=== PATIENT | female | born 1965 | race Caucasian/White ===

== ENCOUNTER 2017-03-06 12:47 | Emergency (ER) | payer OTHER ==
[~2017-03-06] VITALS: Ht 160 cm; Wt 60.0 kg
[~2017-03-06 12:47] MED LIST: ABILIFY10 MG OR; ABILIFY15 MG OR; ABILIFY30 MG PO; ALBUTEROL SUL0.083 % IN; AMBIEN5 MG PO; AZITHROMYCIN250 MG PO; BACTRIM DS1 TAB OR; BACTRIM DS1 TAB PO; CELEXA20 MG OR; CEPHALEXIN500 MG OR; CIPRO500 MG OR; CIPROFLOXACN500 MG PO; COMPAZINE10 MG OR; DARVOCET-N100 MG OR; DILAUDID 2MG2 MG/TAB PO; DILAUDID2 MG PO; EC ASPIRIN325 M1 OR; FLEXERIL OR; IBUPROFEN600 MG PO; INCIVEK; INCIVEK PO; INTRON A SC; KEFLEX500 M1 PO; KEFLEX500 MG PO; KEPPRA500 M2 PO; KLONOPIN0.5 MG OR; KLONOPIN1 MG OR; KLONOPIN1 MG PO; LEXAPRO20 MG PO; LOMOTIL2.5 MG OR; LORTAB 10 PO; LORTAB 5 OR; LORTAB 5 PO; LORTAB 5/3255 MG PO; LORTAB 7.5 OR; LORTAB5 OR; LORTAB5 PO; MACRODANTIN100 MG PO; MEDDOSEPAK PO; METHADONE HCL5 MG PO; MIRTAZAPINE15 MG PO; NAPROSYN500 MG PO; NO HOME MEDS; OXYCODONE HCL5 MG PO; OXYCODONE30 MG OR; OXYCODONE5 M1 OR; OXYCODONE5 M1 PO; OXYCODONE5 MG OR; PEGASYS180 MCG/M SC; PEPCID20 MG PO; PEPCID40 MG PO; PERCOCET 5/325M1 TAB OR; PHENERGAN25 MG RE; PREP H HC1 % EX; PREVACID30 M2 PO; PYRIDIUM200 MG PO; REBETOL200 MG PO; REGLAN10 MG OR; RIBAVIRIN PO; RIBAVIRIN200 M1 OR; ROXICODONE30 MG OR; SEROQUEL100 MG OR; SEROQUEL100 MG PO; SYNTHROID PO; SYNTHROID100 MCG OR; SYNTHROID125 MCG PO; SYNTHROID150 MCG OR; SYNTHROID200 MCG PO; SYNTHROID50 MCG OR; SYNTHROID75 MCG OR; TRAMADOL HCL50 MG PO; TRAZODONE100 MG OR; TRAZODONE150 MG OR; TRAZODONE300 MG OR; TRILEPTAL150 M1 OR; TRILEPTAL150 M1 PO; TRILEPTAL150 MG PO; TRILEPTAL300 M1 PO; ULTRAM50 M1 PO; ULTRAM50 MG OR; WELLBUTRIN150 MG OR; ZANTAC150 MG OR; ZITHROMAX250 MG PO; ZITHROMAX500 M1 PO; ZOFRAN ODT4 MG OR; ZOFRAN ODT4 MG PO; ZOFRAN4 M1 PO; ZOLOFT25 MG PO; ZOLOFT50 MG OR; ZOLOFT50 MG PO; ZPAK PO; [UNRECOGNIZED DRUG - OTHER] PO; [UNRECOGNIZED DRUG - REMARK]
[2017-03-06] MEDS ORDERED: BACTRIM DS1 TAB PO (13:15)
[2017-03-06 14:05] VITALS: BP 101/69
== END 2017-03-06 14:05 | disposition home or self-care (01) | DRG 603 ==
LOC: ED 12:47
PROC: 0H9JXZZ Drainage of Left Upper Leg Skin, External Approach (ICD-10-PCS; principal; 2017-03-06)
DX: L02.416 Cutaneous abscess of left lower limb (principal); F20.9 Schizophrenia, unspecified; J44.9 Chronic obstructive pulmonary disease, unspecified; B19.20 Unspecified viral hepatitis C without hepatic coma; E03.9 Hypothyroidism, unspecified; Z86.73 Personal history of transient ischemic attack (TIA), and cerebral infarction without residual deficits; K21.9 Gastro-esophageal reflux disease without esophagitis; F31.9 Bipolar disorder, unspecified; F17.210 Nicotine dependence, cigarettes, uncomplicated

== ENCOUNTER 2017-03-09 06:04 | Emergency (ER) | payer OTHER ==
[~2017-03-09] VITALS: Ht 160 cm; Wt 59.0 kg
[2017-03-09 07:04] LABS: HEMATOCRIT 47.2 % (37.0-47.0); IMMATURE GRANULOCYTES 0.3 % (0.0-1.0); MEAN CELL VOLUME 91.1 fL CALC (80.0-100.0); MEAN CORPUSCULAR HGB 30.9 pG CALC (26.0-32.0); MEAN CORPUSCULAR HGB CONC 33.9 g/L CALC (32.0-36.0); NEUT# 11.2 thou/uL (2.00-7.15); RED BLOOD COUNT 5.18 mill/uL (4.20-5.60); RED CELL DISTRI WIDTH 13.8 % (11.5-15.5)
[2017-03-09 07:05] LABS: URINE BILIRUBIN - DIPSTICK NEGATIVE (NEGATIVE); URINE BLOOD DIPSTICK SMALL (NEGATIVE); URINE CLARITY CLOUDY; URINE COLOR YELLOW; URINE GLUCOSE - DIPSTICK NEGATIVE (NEGATIVE); URINE KETONE NEGATIVE (NEGATIVE); URINE LEUK ESTERASE NEGATIVE (NEGATIVE); URINE NITRITE - DIPSTICK NEGATIVE (Negative); URINE PH 6.5 (4.5-8.0); URINE PROTEIN - DIPSTICK NEGATIVE (NEG-TRACE); URINE SPECIFIC GRAVITY 1.025; URINE UROBILINOGEN - DIPSTICK 0.2 E.U./dL (0.2)
[2017-03-09 07:14] LABS: BARBITURATES NEGATIVE (NEGATIVE); COCAINE NEGATIVE (NEGATIVE); METHADONE POSITIVE (NEGATIVE); OXCYCODONE NEGATIVE (NEGATIVE); TETRAHYDROCANNABIONOL NEGATIVE (NEGATIVE); TRICYLIC ANTIDEPRESSANTS NEGATIVE (NEGATIVE)
[2017-03-09 07:15] LABS: INTERNATIONAL NORMALIZED RATIO 1.1 RATIO (0.7-1.3); PROTHROMBIN TIME 11.6 SECONDS (9.0-12.5)
[2017-03-09 07:16] LABS: URINE BACTERIA FEW hpf; URINE MUCUS MANY hpf (NONE-FEW); URINE RBC 0-2 RBC/hpf (0-5); URINE SQUAMOUS EPITHELIAL CELL MODERATE EPI/hpf (0-FEW)
[2017-03-09 07:40] LABS: ALBUMIN 4.4 g/dL (3.2-5.0); ALKALINE PHOSPHATASE 62 u/l (38-126); ANION GAP 14 (6-22 (CALC)); BILIRUBIN, TOTAL 0.6 mg/dL (0.0-1.4); BUN 19 mg/dL (7-17); BUN/CREATININE RATIO 27 (12-20 (CALC)); CALCIUM 9.3 mg/dL (8.4-10.2); CARBON DIOXIDE 27 mmol/l (22-30); CHLORIDE 110 mmol/l (95-108); CREATININE 0.7 mg/dL (0.5-1.0); GFR > 60 ML/MIN (>=60 (CALC)); GFR FOR AFR.AMER. > 60 ML/MIN (>=60 (CALC)); GLUCOSE 98 mg/dL (65-105); POTASSIUM 3.4 mmol/l (3.5-5.1); SGOT/AST 18 u/l (14-36); SGPT/ALT 23 u/l (9-52); SODIUM 147 mmol/l (137-146); TOTAL PROTEIN 7.2 g/dL (6.3-8.2)
[2017-03-09 07:52] LABS: MYOGLOBIN 37 ng/mL (0 - 62)
[2017-03-09 08:24] LABS: TSH, 3RD GENERATION 42.8 uIU/mL (0.47 - 4.68)
[2017-03-09] MEDS ORDERED: SYNTHROID50 MCG PO (11:36)
[2017-03-09 11:54] VITALS: BP 174/86
== END 2017-03-09 11:56 | disposition home or self-care (01) | DRG 313 ==
LOC: ED 06:04
PROVIDERS: Emergency Medicine
DX: R07.89 Other chest pain (principal); F20.9 Schizophrenia, unspecified; J44.9 Chronic obstructive pulmonary disease, unspecified; B19.20 Unspecified viral hepatitis C without hepatic coma; E03.9 Hypothyroidism, unspecified; K21.9 Gastro-esophageal reflux disease without esophagitis; F31.9 Bipolar disorder, unspecified; F17.210 Nicotine dependence, cigarettes, uncomplicated; Z79.891 Long term (current) use of opiate analgesic

== ENCOUNTER 2017-03-17 23:23 | Emergency (ER) | payer OTHER ==
[~2017-03-17] VITALS: Ht 160 cm; Wt 59.0 kg
[~2017-03-17 23:23] MED LIST changes: +SYNTHROID50 MCG PO
[2017-03-17] MEDS ORDERED: CLONAZEPAM0.5 M1 PO (23:34)
[2017-03-18] MEDS ORDERED: IBUPROFEN600 MG PO (01:30)
[2017-03-18 01:35] VITALS: BP 100/57
== END 2017-03-18 01:35 | disposition home or self-care (01) | DRG 605 ==
LOC: ED 23:23
DX: S90.31XA Contusion of right foot, initial encounter (principal); F20.9 Schizophrenia, unspecified; J44.9 Chronic obstructive pulmonary disease, unspecified; B19.20 Unspecified viral hepatitis C without hepatic coma; E03.9 Hypothyroidism, unspecified; K21.9 Gastro-esophageal reflux disease without esophagitis; F31.9 Bipolar disorder, unspecified; F17.210 Nicotine dependence, cigarettes, uncomplicated; W20.8XXA Other cause of strike by thrown, projected or falling object, initial encounter; Y92.009 Unspecified place in unspecified non-institutional (private) residence as the place of occurrence of the external cause; Z86.73 Personal history of transient ischemic attack (TIA), and cerebral infarction without residual deficits

== ENCOUNTER 2017-04-29 13:28 | Emergency (ER) | payer OTHER ==
[~2017-04-29] VITALS: Ht 160 cm; Wt 60.0 kg
[~2017-04-29 13:28] MED LIST changes: +CLONAZEPAM0.5 M1 PO
[2017-04-29 15:12] LABS: HEMATOCRIT 41.5 % (37.0-47.0); HEMOGLOBIN 14.1 g/dl (12.0-16.0); IMMATURE GRANULOCYTES 0.4 % (0.0-1.0); MEAN CELL VOLUME 91.2 fL CALC (80.0-100.0); NEUT# 9.64 thou/uL (2.00-7.15); RED BLOOD COUNT 4.55 mill/uL (4.20-5.60); RED CELL DISTRI WIDTH 13.9 % (11.5-15.5)
[2017-04-29 15:26] LABS: ALBUMIN 4.7 g/dL (3.2-5.0); ALKALINE PHOSPHATASE 63 u/l (38-126); ANION GAP 15 (6-22 (CALC)); BILIRUBIN, TOTAL 0.8 mg/dL (0.0-1.4); BUN 20 mg/dL (7-17); BUN/CREATININE RATIO 24 (12-20 (CALC)); CALCIUM 9.3 mg/dL (8.4-10.2); CARBON DIOXIDE 25 mmol/l (22-30); CHLORIDE 105 mmol/l (95-108); CREATININE 0.8 mg/dL (0.5-1.0); GFR > 60 ML/MIN (>=60 (CALC)); GFR FOR AFR.AMER. > 60 ML/MIN (>=60 (CALC)); GLUCOSE 92 mg/dL (65-105); POTASSIUM 4.1 mmol/l (3.5-5.1); SGOT/AST 18 u/l (14-36); SGPT/ALT 12 u/l (9-52); SODIUM 141 mmol/l (137-146); TOTAL PROTEIN 7.7 g/dL (6.3-8.2)
[2017-04-29] MEDS ORDERED: BACTRIM DS1 TAB PO (17:37)
[2017-04-29] MEDS ORDERED: CEPHALEXIN500 MG PO (17:37)
[2017-04-29] MEDS ORDERED: LORTAB 1010 MG PO (17:40)
[2017-04-29 17:56] VITALS: BP 111/64
== END 2017-04-29 18:03 | disposition left against medical advice (07) | DRG 603 ==
LOC: ED 13:28 → ED-I 16:50 → ED 18:03
PROVIDERS: Emergency Medicine
PROC: 0H9EXZX Drainage of Left Lower Arm Skin, External Approach, Diagnostic (ICD-10-PCS; principal; 2017-04-29)
DX: L02.414 Cutaneous abscess of left upper limb (principal); F20.9 Schizophrenia, unspecified; L03.114 Cellulitis of left upper limb; B19.20 Unspecified viral hepatitis C without hepatic coma; E03.9 Hypothyroidism, unspecified; K21.9 Gastro-esophageal reflux disease without esophagitis; F31.9 Bipolar disorder, unspecified; F41.0 Panic disorder [episodic paroxysmal anxiety]; F17.210 Nicotine dependence, cigarettes, uncomplicated; Z86.73 Personal history of transient ischemic attack (TIA), and cerebral infarction without residual deficits; B95.61 Methicillin susceptible Staphylococcus aureus infection as the cause of diseases classified elsewhere

== ENCOUNTER 2017-06-04 00:32 | Emergency (ER) | payer OTHER ==
[~2017-06-04] VITALS: Ht 160 cm; Wt 53.2 kg
[~2017-06-04 00:32] MED LIST changes: +CEPHALEXIN500 MG PO; +LORTAB 1010 MG PO
[2017-06-04] MEDS ORDERED: TRILEPTAL150 M1 PO (00:54)
[2017-06-04] MEDS ORDERED: KLONOPIN1 MG PO (00:54)
[2017-06-04] MEDS ORDERED: CEPHALEXIN500 MG PO (01:07)
[2017-06-04 01:27] VITALS: BP 132/71
== END 2017-06-04 01:25 | disposition home or self-care (01) | DRG 605 ==
LOC: ED 00:32
PROC: 0HQEXZZ Repair Left Lower Arm Skin, External Approach (ICD-10-PCS; principal; 2017-06-04)
DX: S51.812A Laceration without foreign body of left forearm, initial encounter (principal); W26.8XXA Contact with other sharp object(s), not elsewhere classified, initial encounter; Y93.89 Activity, other specified; Y92.89 Other specified places as the place of occurrence of the external cause

== ENCOUNTER 2018-02-17 15:12 | Inpatient (IN) | payer OTHER ==
[~2018-02-17] VITALS: Ht 160 cm; Wt 47.3 kg
--- NOTE | 2018-02-17 15:18 | NUR ---
PT TO ROOM VIA EMS
--- NOTE | 2018-02-17 15:23 | NUR ---
PT STATES THAT SHE WAS LIFTING A BAG OF DOG FOOD AND HIT HER BACK ON A CABINENT A FEW DAYS AGO. PT STATES ABOMINAL PAIN WITH N/V/D FORLAST 2 DAYS. PT HAS BEE
[2018-02-17 15:45] LABS: HEMATOCRIT 37.1 % (37.0-47.0); IMMATURE GRANULOCYTES 0.5 % (0.0-5.0); MEAN CELL VOLUME 90.5 fL CALC (80.0-100.0); MEAN CORPUSCULAR HGB 29.5 pG CALC (26.0-32.0); MEAN CORPUSCULAR HGB CONC 32.6 g/L CALC (32.0-36.0); NEUT# 3.6 thou/uL (2.00-7.15); RED BLOOD COUNT 4.1 mill/uL (4.20-5.60)
[2018-02-17 15:48] LABS: INFLUENZA A NONE DETECTED (NONE DETECT); INFLUENZA B NONE DETECTED (NONE DETECT)
[2018-02-17 15:54] LABS: BILIRUBIN, TOTAL 0.9 mg/dL (0.0-1.4); BUN 29 mg/dL (7-17); BUN/CREATININE RATIO 28 (12-20 (CALC)); CARBON DIOXIDE 24 mmol/l (22-30); CHLORIDE 110 mmol/l (95-108); CREATININE 1.1 mg/dL (0.5-1.0); GFR 52 ML/MIN (>=60 (CALC)); GFR FOR AFR.AMER. > 60 ML/MIN (>=60 (CALC)); LIPASE 44 u/l (23-300); SODIUM 143 mmol/l (137-146); TOTAL PROTEIN 6.7 g/dL (6.3-8.2)
[2018-02-17 15:57] LABS: ALBUMIN 3.6 g/dL (3.2-5.0); ALKALINE PHOSPHATASE 148 u/l (38-126); ANION GAP 12 (6-22 (CALC)); POTASSIUM 3.2 mmol/l (3.5-5.1); SGOT/AST 588 u/l (14-36)
[2018-02-17 16:00] LABS: HEMOGLOBIN 12.1 g/dl (12.0-16.0)
--- NOTE | 2018-02-17 16:23 | NUR ---
PT ASLEEP ON STRETHCER
--- NOTE | 2018-02-17 17:13 | NUR ---
PT RESTING ON STRETHCER, IV PATENT WITH FLUIDS RUNNING
[2018-02-17 17:23] LABS: URINE BILIRUBIN - DIPSTICK NEGATIVE (NEGATIVE); URINE BLOOD DIPSTICK TRACE-INTACT (NEGATIVE); URINE COLOR YELLOW; URINE GLUCOSE - DIPSTICK NEGATIVE (NEGATIVE); URINE KETONE NEGATIVE (NEGATIVE); URINE NITRITE - DIPSTICK NEGATIVE (Negative); URINE PROTEIN - DIPSTICK NEGATIVE (NEG-TRACE); URINE UROBILINOGEN - DIPSTICK 0.2 E.U./dL (0.2)
[2018-02-17 17:24] LABS: URINE CLARITY CLEAR; URINE LEUK ESTERASE SMALL (NEGATIVE)
[2018-02-17 17:32] LABS: URINE SQUAMOUS EPITHELIAL CELL FEW EPI/hpf (0-FEW)
--- NOTE | 2018-02-17 18:13 | NUR ---
PT ASLEEP ON STRETHCER, IV PATENT WITH FLUIDS RUNNING
--- NOTE | 2018-02-17 18:43 | NUR ---
SBAR SENT TO FLOOR
--- NOTE | 2018-02-17 19:36 | NUR ---
LENORE DENNEY CALLED FOR REPORT- ACCEPTED PT
--- NOTE | 2018-02-17 20:10 | NUR ---
PT TO FLOOR VIA STRETCHER ACCOMPANIED BY ER STAFF. PT AMBULATED TO BED WITH MINIMAL ASSISTANCE. PT IS ALERT AND ORIENTED X3. ADMISSION ASSESSMENT COMPLETED AT THIS TIME. PT ORIENTED TO ROOM AND UNIT AND CALL LIGHT SYSTEM. PLAN OF CARE REVIEWED. PT VERBALIZED U NDERSTANDING. CALL LIGHT IN REACH. WILL CONTINUE TO MONITOR. CALL LIGHT IN REACH. WILL CONTINUE TO MONITOR.
[2018-02-17 20:15] VITALS: BP 98/62
--- NOTE | 2018-02-17 20:16 | NUR ---
Admission Note Report Given to: FATOU DENNEY Transported by: Wheelchair X Stretcher Transported with: X Nurse Transporter X Patent IV O2 X Skills Auditor TRANSPORTED TO ICU 4
[2018-02-17 20:30] VITALS: BP 96/51
[2018-02-17 20:45] VITALS: BP 93/53
[2018-02-17 20:57] LABS: COCAINE POSITIVE (NEGATIVE); METHADONE NEGATIVE (NEGATIVE); TETRAHYDROCANNABIONOL POSITIVE (NEGATIVE)
--- NOTE | 2018-02-17 20:57 | NUR ---
TEMP 102.6 ICE PACKS PLACED ON PATIENT X4. PT REPORTS THAT TYLENOL AND TORADOL MAKE HER THROAT SWELL AND SHUT. WILL CONTINUE TO MONTIOR
[2018-02-17 20:58] LABS: BARBITURATES NEGATIVE (NEGATIVE); OXCYCODONE NEGATIVE (NEGATIVE); TRICYLIC ANTIDEPRESSANTS NEGATIVE (NEGATIVE)
[2018-02-17 21:00] VITALS: BP 109/60
--- NOTE | 2018-02-17 21:45 | NUR ---
NOTIFIED DR MIR OF PT BP. ORDERS RECEIVED FOR PLACEMENT OF PATRICK. PATRICK PLACED. PT TOLERATED WELL. NS BOLUS STARTED PER MD ORDERS. CALL LIGHT IN REACH. WILL CONTINUE TO MONITOR.
[2018-02-17 22:00] VITALS: BP 89/51
--- NOTE | 2018-02-17 22:15 | NUR ---
TEMP RECHECK 100.7. ICE PACKS REMOVED WILL CONTINUE OT MONITOR
--- NOTE | 2018-02-17 23:51 | NUR ---
TEMP 99.4. PT RESTING IN BED WITH EYES CLOSED. CALL LIGHT IN REACH. WILL CONTINUE TO MONITOR.
[2018-02-18] VITALS (9 sets, daily range): BP systolic 92–120; BP diastolic 51–79
--- NOTE | 2018-02-18 00:40 | NUR ---
PT RESTING IN BED WITH EYES CLOSED SNORING RESPIRATIONS NOTED. AROUSED PT TAKE MANUAL BP DUE TO AUTOMATIC READING 79/34. MANUAL BP 94/50. REPLACED AUTO CUFF WITH A SMALL CUFF. AUTO BP NOW READING 99/53. PT STATING SHE IS HAVING BACK PAIN. EXPLAINED THAT I HAVE ALREADY SPOKE WITH MD AND NO NARCOTICS WILL BE ORDERED. AND SHE IS ALLERGIC TO TYLENOL AND TORADOL. PT DISGRUNTLED BUT VERBALIZED UNDERSTANDING. CALL LIGHT IN REACH. WILL CONTINUE TO MONITOR.
--- NOTE | 2018-02-18 02:16 | NUR ---
PT RESTING IN BED WITH EYES CLOSED. RESP ARE EVEN AND UNLABORED. NO DISTRESS NOTED. CALL LIGHT IN REACH. WILL CONTINUE TO MONITOR.
--- NOTE | 2018-02-18 03:58 | NUR ---
pt resting in bed with eyes closed. pt aROUSES TO VERBAL STIMULI RESP ARE EVEN AND UNLABORED. PT IS SB TO SR ON MONITOR. CALL LIGHT IN REACH. WILL CONTINUE TO MONITOR.
[2018-02-18 05:11] LABS: HEMATOCRIT 34.9 % (37.0-47.0); HEMOGLOBIN 11.2 g/dl (12.0-16.0); IMMATURE GRANULOCYTES 1.5 % (0.0-5.0); MEAN CELL VOLUME 91.6 fL CALC (80.0-100.0); MEAN CORPUSCULAR HGB 29.4 pG CALC (26.0-32.0); MEAN CORPUSCULAR HGB CONC 32.1 g/L CALC (32.0-36.0); PLATELET COUNT 98 thou/uL (130-400); RED BLOOD COUNT 3.81 mill/uL (4.20-5.60); RED CELL DISTRI WIDTH 15.2 % (11.5-15.5)
[2018-02-18 05:27] LABS: ALKALINE PHOSPHATASE 92 u/l (38-126); ANION GAP 13 (6-22 (CALC)); BILIRUBIN, TOTAL 0.8 mg/dL (0.0-1.4); BUN 18 mg/dL (7-17); BUN/CREATININE RATIO 23 (12-20 (CALC)); CARBON DIOXIDE 21 mmol/l (22-30); CHLORIDE 116 mmol/l (95-108); CREATININE 0.8 mg/dL (0.5-1.0); GFR > 60 ML/MIN (>=60 (CALC)); GFR FOR AFR.AMER. > 60 ML/MIN (>=60 (CALC)); POTASSIUM 3.8 mmol/l (3.5-5.1); SGOT/AST 226 u/l (14-36); SODIUM 146 mmol/l (137-146)
[2018-02-18 05:35] LABS: ALBUMIN 2.7 g/dL (3.2-5.0); TOTAL PROTEIN 5.2 g/dL (6.3-8.2)
[2018-02-18 05:41] LABS: BAND 6 % (0-8); MANUAL DIFFERENTIAL YES
--- NOTE | 2018-02-18 06:13 | NUR ---
PT RESTING IN BED WITH EYES CLOSED AROUSES TO VERBAL STIMULI. RESP ARE EVEN AND UNLABORED. TEMP 98.1. PT WITH COMPLAINTS OF BACK PAIN. CALL LIGHT IN REACH, WILL CONTINUE TO MONITOR
--- NOTE | 2018-02-18 06:52 | NUR ---
RECVD PARTIAL REPORT FROM JUMANA LAINEZ AT START OF SHIFT.
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
--- NOTE | 2018-02-18 08:19 | NUR ---
PT SAT UP ON SIDE OF BED, MADE HER COFFEE, THEN ROLLED OVER TO GO BACK TO SLEEP. WHEN ASKED IF SHE IS DONE WITH BREAKFAST, PT SAID "NOPE".
--- NOTE | 2018-02-18 09:29 | NUR ---
pt given morning meds. pt laying quietly in bed but very nasty to staff when we enter. pt laughing on personal cell phone.
--- NOTE | 2018-02-18 09:47 | NUR ---
PT FREQUENTLY ON CALLBELL.
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
--- NOTE | 2018-02-18 10:22 | NUR ---
DR OLVERA REMOVED PT FROM CONTACT PRECAUTIONS SINCE MENINGITIS IS NEGATIVE. REQUEST IVF STOPPED.
--- NOTE | 2018-02-18 10:44 | NUR ---
S: DARIANA NINA is a 52 F who presents with spesis. She has a history of Hep C, COPD, and cancer. All medications in patient's chart were reviewed. VS: BP 98/59, P 52, RR 25 ,T 96.4 W 47.287 kg, HT 24.8 cm, Scr= 0.8,CrCl= 60.0 ml/min A: Blood culture is pending. Urine culture show no growth after 48 hours. P: Patient is on zosyn 3.375 gm IV Q6h. Vancomycin ordered for pharmacy to dose. Start Vancomycin 1 gm IV Q24H. Vancomycin trough is drawn before the 4th dose on 02/20/18 at 0630. Vancomycin goal trough is between 15-20 mcg/ml. Pharmacy will follow and or advise on antibiotics use as needed.
--- NOTE | 2018-02-18 10:45 | NUR ---
CATH PATRICK REMOVED W/OUT INCIDENT. 10CC REMOVED FROM BALLOON. LINENS CHANGED PER PTS REQUEST. PT UP TO BSC UNASSISTED. PT REMINDED TO CALL BEFORE SHE GETS OUT OF BED.
--- NOTE | 2018-02-18 10:52 | NUR ---
HANY, CASE MANAGEMENT, AT BEDSIDE [facility] PT.
--- NOTE | 2018-02-18 11:47 | NUR ---
PT STATES SHE IS "BURNING UP", REFUSES TO REMOVE THE COVERS. TEMP 97.0
--- NOTE | 2018-02-18 12:08 | NUR ---
PT CONTINUALLY RIPS OFF HER BP CUFF & PULSE OX.
--- NOTE | 2018-02-18 12:20 | NUR ---
FRIEND @BEDSIDE WITH PT. BROUGHT A PHONE FOOD TECHNOLOGIST.
--- NOTE | 2018-02-18 12:58 | NUR ---
CALLED TO ROOM AFTER PT "WAS INCONTENENT OF HER BOWELS". PT CLEANED UP & LINENS CHANGED. PT THEN SAT ON BSC FOR DIARRHEA. PT TALKING TO HERSELF ABOUT "THIS ISNT WITHDRAWL BC THERES NOTHING TO WITHDRAWL OFF OF" PT ASSISTED BACK TO BED AND TUCKED IN FOR A NAP. FRIEND LEFT.
--- NOTE | 2018-02-18 13:18 | NUR ---
PT APPEARS TO BE SLEEPING IN BED. NO S/S OF DISTRESS AT THIS TIME. WILL CONTINUE TO MONITOR.
--- NOTE | 2018-02-18 13:46 | NUR ---
DIETARY @BEDSIDE WITH PT.
--- NOTE | 2018-02-18 14:44 | NUR ---
PT UP OUT OF BED, CLOSING CURTAINS, AND RIPPING OFF MONITOR. PT REMINDED THAT SHE NEEDS TO USE CALLBELL BEFORE GETTING OUT OF BED. PT OVERHEARD YELLING AT STAFF FROM ROOM. CALLBELL W/IN REACH, BED IN LOWEST POSITION, WHEELS LOCKED, PATHWAYS CLEAR, LIGHTS ON. PT CONTINUE TO BE UNCOOPERATIVE.
--- NOTE | 2018-02-18 14:55 | NUR ---
CASE MANAGEMENT & DEPT PALS NURSE AWARE.
--- NOTE | 2018-02-18 15:09 | NUR ---
DR OLVERA AWARE OF PTS BEHAVIOR.
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
--- NOTE | 2018-02-18 15:45 | NUR ---
RECEIVED PHONE CALL FROM PTS FRIEND FRANCESCO CARDOZA REPORTING SEVERAL COMPLAINTS. IN TO SEE PT, PT FOUND AMBULATING IN ROOM, AGGITATED AND TEARFUL MOVING FURNITURE ABOUT IN ROOM. PT REPORTS LOOKING FOR HER EMERGENCY DOSE OF KLONOPIN SHE HAD HIDDEN IN THE BACK OF HER PHONE CASE. INFORMED PT SHE HAD ALREADY RECEIVED 2MG OF KLONOPIN, PT REPORTS SHE ONLY TAKES 1/2 MG AT HOME. PT ALSO REPORTS LAYING IN SOILED SHEETS, SHEETS AT THIS TIME FOUND TO BE CLEAN. PT AGGITAED WITH NOT BEING ABLE TO GET WASHED UP, OFFERED TO ASSIST PT AT THIS TIME, PT REFUSED STATING SHE WILL WAIT LATER UNTIL HER FRIEND COMES IN. PT ALSO REPORTS HEADACHE. PT WILL NOT MAINTAIN ANY EYE CONTACT AND CONTINUES TO SEARCH ROOM FOR HER MISSING PILL. NOTIFIED DR OLVERA OF PTS AGGITATION AND HEADACHE. WILL BE IN TO SEE HER.
--- NOTE | 2018-02-18 15:51 | NUR ---
PT ON FLOOR, LOOKING FOR HER "EMERGENCY KLONIPIN" UNDER BED. PT CLOSING CURTAINS, CRAWLING ON FLOOR.
--- NOTE | 2018-02-18 15:55 | NUR ---
PT REMOVED BRAKE ON BED, CAN HEAR THE ALARM BUT CAN NOT SEE WITH CURTAINS CLOSED.
--- NOTE | 2018-02-18 16:30 | NUR ---
PT REQUESTING A BROOM. PT LOOKING IN GARBAGE CANS & MOVING AROUND THE FURNITURE & LOOKING THROUGH DRAWERS/CABINETS. PT IS TALKING TO HERSELF, ACTING JITTERY, CALLING THIS "A NISHA MOUSE ESTABLISHMENT" DR OLVERA ON THE UNIT.
--- NOTE | 2018-02-18 16:35 | NUR ---
PT CRYING ON THE PHONE, YELLING ABOUT STAFF.
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
--- NOTE | 2018-02-18 17:12 | NUR ---
PT TALKING ON PHONE TELLING PEOPLE TO BRING "HER STUFF" HER IN HER PURSE AND SHE WILL PAY THEM BACK TOMORROW. ALSO, THAT WE CAN'T SEARCH HER PURSE SO THATS A GOOD IDEA.
--- NOTE | 2018-02-18 17:18 | NUR ---
DIELECTRIC EMBOSSING MACHINE OPERATOR CALLED FOR PTS INCREASING AGITATION AND FOR ASSISTANCE WITH OVERHEARING PTS CONVERSATION.
--- NOTE | 2018-02-18 17:45 | NUR ---
DILAUDID VERIFIED WITH DR OLVERA, ACKNOWLEDGING HYPOTENSION. HE STATED SHE HAS CHRONIC LIVER DX SO HER BP WILL BE LOW. PT ADVISED SHE NEEDED TO STAY ON BP/PULSE OX/TELE MONITOR AND STAY IN BED AFTER GETTING DILAUDID. DILAUDID GIVEN A SLOW PUSH OVER 5 MINS & DILUTED WITH 9.5ML OF NACL AND 10ML FLUSH IN RIGHT A/C. PT STATED HER FRIEND IS BRINGING UP HER KLONIPIN TO SHOW US, ADVISED PT SHE DOES NOT NEED BRING IN KLONIPIN. PT INITIALLY STATED SHE WANTED TO KILL HERSELF BUT TOOK IT BACK WHEN HOUSE SUP ARRIVED. PT CURRENTLY SMILING WHILE TEXTING ON CELLPHONE.
--- NOTE | 2018-02-18 18:28 | NUR ---
FRIEND AT BEDSIDE, BROUGHT PTS PURSE. PT SHOWED ME CONTENTS OF HER PURSE. PT HAD A BURNT SPOON WRAPPED IN FOIL, BOTTLE OF HER KLONIPIN. FRIEND TOOK PTS PURSE HOME. PT KEPT HER PACK OF CIGARETTES & CAP COVERER, MULTIPLE FOOD STAMP CARDS ID, & PHONE BOOK. FRIEND LEFT UNIT THEN CAME BACK AFTER I DENIED HER TAKING PT DOWN TO SEE HER FRIEND. THIS FRIEND ASKED FOR A MEAL. PT GIVEN A [place]. PT VERY HAPPY AFTER PT LEFT.
--- NOTE | 2018-02-18 18:57 | NUR ---
PT ATE 100% OF DINNER. PT CURRENTLY SMILING WHILE TALKING ON PERSONAL CELL PHONE, SITTING CURLED UP IN A BALL RELAXING IN RECLINER. PT PLAYING WITH HER IV.
--- NOTE | 2018-02-18 19:03 | NUR ---
THIS RN WAS REVIEWING ASSIGNED PATIENTS CHARTS WHEN I NOTICED THE PATIENT MANIPULATING HER IV. THIS RN MOVED CLOSER TO THE PATIENT ROOM REMAINING OUT OF PATIENT EYESIGHT AND OBSERVED THE PATIENT WITH A SYRINGE IN HER LAP. THIS RN THEN ENTERED THE ROOM, IMMEDIATELY TOLD THE PATIENT NOT TO MOVE. AN EMPTY CAPPED DIABETIC SYRINGE, AND AN UNCAPPED FULL OF FLUID, NEEDLE EXPOSED DIABETIC SYRINGE THAT SHE DROPPED INTO HER LAP THIS RN ENTERED THE ROOM. CARE WAS TAKEN TO NOT BE STUCK WITH UNCAPPED SYRINE BY THIS RN. PATIENTS WRISTS WERE HELD TO KEEP PATIENT FROM REACHING FOR OPEN UNSECURED SHARPS. CALLED TO NURSES STATION FOR ASSISTANCE THIS RN CONTINUED TO HOLD PATIENTS WRISTS TO KEEP FROM EITHER MYSELF OR THE PATIENT BEING STUCK. [facility] WAS CALLED AT THIS TIME. PT. STATED THAT "HER FRIEND MUST HAVE BROUGHT IT AND PUT IT IN THE SEAT CUSHIONS". THIS RN INFORMED THE PATIENT THAT THIS RN WITNESSED THE PATIENT ATTEMPTING TO USE HER IV A MEANS TO INJECT THE SUBSTANCE WITHIN THE SYRINGE. PT. ADAMANTLY DENIED AND SAID "I JUST FOUND IT OPEN LIKE THIS". THIS RN THEN AGAIN INFORMED THE PATIENT THAT SHE WAS OBSERVED FOR SOME TIME MANIPULATING HER IV AND SOMETHING ELSE IN HER LAP. SYRINGES WERE REMOVED FROM PATIENT AND PLACED ON TRAY TABLE ACROSS FROM THE BED AWAY FROM THE PATIENT TO AWAIT UNTIL [facility] ARRIVAL.
--- NOTE | 2018-02-18 19:03 | NUR ---
PT CAUGHT PLAYING WITH IV WHILE CURLED UP IN RECLINER. RN ENTERED ROOM TO FIND PT TRYING TO STICK MULTIPLE NEEDLES IN HER ARM. 2 SYRINGES TAKEN FROM PTS HANDS AND PLACED ON TRAY BY DOOR. SHAYNA GARDUNO CALLED TO 222. PANIC BUTTON PUSHED. HOUSE SUP CALLED. SPOKE WITH DR OLVERA; HE WOULD LIKE TO BE CALLED BACK AFTER POLICE CALLED.
--- NOTE | 2018-02-18 19:10 | NUR ---
PT. HAS PULLED OFF ALL HER MONITORING EQUIPMENT AT THIS TIME.
--- NOTE | 2018-02-18 19:13 | NUR ---
PT. ASSESSED FOR ORIENTATION. ORIENTED X 3. STATES SHE IS IN THE HOSPITAL IN [place], THAT IT IS FEBRUARY 2018, AND "[place]" IS THE PRESIDENT. PT. HOSTILE AND CURSING AT STAFF.
--- NOTE | 2018-02-18 19:15 | NUR ---
[employer] POL[employer] IN UNIT
--- NOTE | 2018-02-18 19:25 | NUR ---
PT. HOSTILE WITH STAFF AND [employer], CURSING AND YELLING OUT.
--- NOTE | 2018-02-18 19:35 | NUR ---
MADE AWARE OF CURRENT STATUS WITH [employer]. PER [employer] THEY TESTED THE SYRINGE THAT THE PATIENT HAD IN HER LAP THAT WAS UNCAPPED AND FULL, AND IT CAME BACK POSITIVE FOR BEING AN OPIATE. [facility] STATES THEY WILL BE CHARGING HER WITH POSESSION OF PARAPHERNALIA, AND POSESSION OF CONTROLLED SUBSTANCE WITHOUT A PRESCRIPTION PATIENT WAS FOUND TO HAVE 2 CLONAZEPAM'S IN WITH HER CIGARETTES. PER DR. OLVERA, HE WILL REVIEW HER STATUS FOR POSSIBLE DISCHARGE.
--- NOTE | 2018-02-18 19:45 | NUR ---
PT. STATING THAT SHE WILL JUST SIGN THE AMA PAPERWORK TO GET IT OVER WITH. PT. STATES SINCE SHE MAY BE DISCHARGED THERE IS NO REASON TO WAIT ANY LONGER.
--- NOTE | 2018-02-18 19:50 | NUR ---
PT. SIGNED OUT AMA.
--- NOTE | 2018-02-18 19:50 | NUR ---
PT. ELECTED TO SIGN AMA FORM. PT. WAS INFORMED THAT THE PHYSICIAN WAS REVIEWING HER INFORMATION FOR POSSIBLE DISCHARGE. PT. STATED THAT SHE PREFERRED TO JUST SIGN OUT AMA THAT SHE WOULD BE GOING TO ALF EITHER WAY.
--- NOTE | 2018-02-18 20:00 | NUR ---
PT. REMAINS WITH ALL EQUIPMENT PULLED OFF, REFUSING VITALS.
--- NOTE | 2018-02-18 20:00 | NUR ---
[facility] REMAINS AT BEDSIDE WITH PATIENT. PT. OFFERED DISPOSABLE UNDERWEAR BUT REFUSED. PT. ALLOWED TO KEEP GOWN AT THIS TIME HER PERSONAL CLOTHES THAT SHE PRESENTED TO THE HOSPITAL IN, WERE ACCORDING TO THE PATIENT URINE SOAKED. HER CLOTHES DID SMELL OF URINE [facility] WAS GOING THROUGH THE PATIENTS BELONGINGS, AGAIN DISPOSABLE UNDERGARMENTS OFFERED, BUT PATIENT REFUSED. CONTINUES TO BE HOSTILE WITH STAFF AND [facility]. PT. ALSO MAKING THREATS REGARDING WHO SHE SAYS BROUGHT THE SYRINGE STATING "SHE'S GOING TO GET HER'S, ILL GIVE HER A HOT SYRINGE". [facility] PRESENT PT. MAKING THREATS.
--- NOTE | 2018-02-18 20:05 | NUR ---
IV SITE DISCONTINUED AT THIS TIME. PRESSURE BANDAGE APPLIED WITH GAUZE AND TAPE. NO BLEEDING NOTED FROM SITE. #20 REMOVED FROM RT. AC. TIP INTACT.
--- NOTE | 2018-02-18 20:10 | NUR ---
PT. PLACED IN CUSTODY OF [employer] AT THIS TIME. LEAVES WITH TWO OFFICERS IN HANDCUFFS.
--- NOTE | 2018-02-18 20:10 | NUR ---
PT. LEAVES AMA, LEFT PRIOR TO RECEIVING OR SIGNING DISCHARGE INSTRUCTIONS.
== END 2018-02-18 20:10 | disposition left against medical advice (07) | DRG 690 ==
LOC: ED 15:12 → ED-I 18:30 → ED 18:44 → MS2 18:45 → ICU 19:04 → MS2 19:04 → ICU 19:05
PROVIDERS: Family Medicine; ADMIT Internal Medicine; ATTEND Internal Medicine
PROC: 009U3ZX Drainage of Spinal Canal, Percutaneous Approach, Diagnostic (ICD-10-PCS; principal; 2018-02-17)
PROC: 0T9B70Z Drainage of Bladder with Drainage Device, Via Natural or Artificial Opening (ICD-10-PCS; 2018-02-17)
DX: N39.0 Urinary tract infection, site not specified (principal); F41.9 Anxiety disorder, unspecified; F14.10 Cocaine abuse, uncomplicated; F17.210 Nicotine dependence, cigarettes, uncomplicated; B19.20 Unspecified viral hepatitis C without hepatic coma; J44.9 Chronic obstructive pulmonary disease, unspecified; G89.29 Other chronic pain; M54.9 Dorsalgia, unspecified; R33.0 Drug induced retention of urine; T40.2X5A Adverse effect of other opioids, initial encounter; R51 Headache
CPT/HCPCS: Q9967

== ENCOUNTER 2018-04-04 17:07 | Emergency (ER) | payer OTHER ==
[~2018-04-04] VITALS: Ht 160 cm; Wt 45.0 kg
[2018-04-04 18:10] LABS: BARBITURATES NEGATIVE (NEGATIVE); COCAINE POSITIVE (NEGATIVE); METHADONE NEGATIVE (NEGATIVE); OXCYCODONE NEGATIVE (NEGATIVE); TETRAHYDROCANNABIONOL POSITIVE (NEGATIVE); TRICYLIC ANTIDEPRESSANTS NEGATIVE (NEGATIVE)
[2018-04-04 18:12] VITALS: BP 104/57
== END 2018-04-04 18:32 | disposition home or self-care (01) ==
LOC: ED 17:07
PROVIDERS: Emergency Medicine
DX: S16.1XXA Strain of muscle, fascia and tendon at neck level, initial encounter (principal); W22.8XXA Striking against or struck by other objects, initial encounter; M54.2 Cervicalgia

== ENCOUNTER 2018-10-12 12:19 | Emergency (ER) | payer OTHER ==
[~2018-10-12] VITALS: Ht 160 cm; Wt 45.0 kg
[2018-10-12 14:07] LABS: ALKALINE PHOSPHATASE 62 u/l (38-126); ANION GAP 15 (6-22 (CALC)); BILIRUBIN, TOTAL 0.7 mg/dL (0.0-1.4); BUN 24 mg/dL (7-17); BUN/CREATININE RATIO 34 (12-20 (CALC)); CARBON DIOXIDE 25 mmol/l (22-30); CHLORIDE 108 mmol/l (95-108); CREATININE 0.7 mg/dL (0.5-1.0); ETHYL ALCOHOL 0 mg/dl (0-30); GFR > 60 ML/MIN (>=60 (CALC)); GFR FOR AFR.AMER. > 60 ML/MIN (>=60 (CALC)); POTASSIUM 4.4 mmol/l (3.5-5.1); SGOT/AST 90 u/l (14-36); SODIUM 144 mmol/l (137-146)
[2018-10-12 14:10] LABS: ALBUMIN 4.2 g/dL (3.2-5.0); TOTAL PROTEIN 7.4 g/dL (6.3-8.2)
[2018-10-12 14:32] LABS: IMMATURE GRANULOCYTES 0.4 % (0.0-5.0); MEAN CELL VOLUME 93.2 fL CALC (80.0-100.0); MEAN CORPUSCULAR HGB 29.8 pG CALC (26.0-32.0); MEAN CORPUSCULAR HGB CONC 31.9 g/L CALC (32.0-36.0); NEUT# 4.48 thou/uL (2.00-7.15); RED BLOOD COUNT 4.57 mill/uL (4.20-5.60); RED CELL DISTRI WIDTH 15.1 % (11.5-15.5)
[2018-10-12 14:41] LABS: URINE BILIRUBIN - DIPSTICK NEGATIVE (NEGATIVE); URINE BLOOD DIPSTICK NEGATIVE (NEGATIVE); URINE COLOR YELLOW; URINE GLUCOSE - DIPSTICK NEGATIVE (NEGATIVE); URINE KETONE NEGATIVE (NEGATIVE); URINE LEUK ESTERASE NEGATIVE (NEGATIVE); URINE NITRITE - DIPSTICK NEGATIVE (Negative); URINE PH 5.5 (4.5-8.0); URINE PROTEIN - DIPSTICK NEGATIVE (NEG-TRACE); URINE UROBILINOGEN - DIPSTICK 0.2 E.U./dL (0.2)
[2018-10-12 14:49] LABS: HEMATOCRIT 42.6 % (37.0-47.0); HEMOGLOBIN 13.6 g/dl (12.0-16.0)
[2018-10-12 14:59] LABS: BARBITURATES NEGATIVE (NEGATIVE); COCAINE POSITIVE (NEGATIVE); METHADONE NEGATIVE (NEGATIVE); OXCYCODONE NEGATIVE (NEGATIVE); TETRAHYDROCANNABIONOL NEGATIVE (NEGATIVE); TRICYLIC ANTIDEPRESSANTS NEGATIVE (NEGATIVE)
[2018-10-12 15:36] VITALS: BP 123/64
== END 2018-10-12 15:48 | disposition home or self-care (01) ==
LOC: ED 12:19
DX: S70.01XA Contusion of right hip, initial encounter (principal); S30.0XXA Contusion of lower back and pelvis, initial encounter; S20.212A Contusion of left front wall of thorax, initial encounter; S20.211A Contusion of right front wall of thorax, initial encounter; S30.1XXA Contusion of abdominal wall, initial encounter; B36.9 Superficial mycosis, unspecified; F19.10 Other psychoactive substance abuse, uncomplicated; F17.210 Nicotine dependence, cigarettes, uncomplicated; W18.30XA Fall on same level, unspecified, initial encounter; Y93.89 Activity, other specified; Y92.009 Unspecified place in unspecified non-institutional (private) residence as the place of occurrence of the external cause
CPT/HCPCS: Q9967

== ENCOUNTER 2020-12-13 01:45 | Observation (INO) | payer OTHER ==
[~2020-12-13] VITALS: Ht 160 cm; Wt 72.0 kg
[2020-12-13 02:18] LABS: IMMATURE GRANULOCYTES 1.1 % (0.0-5.0); MEAN CELL VOLUME 93.2 fL CALC (80.0-100.0); MEAN CORPUSCULAR HGB 30.4 pG CALC (26.0-32.0); MEAN CORPUSCULAR HGB CONC 32.6 g/dL CAL (32.0-36.0); NEUT# 3.63 thou/uL (2.00-7.15); RED BLOOD COUNT 3.69 mill/uL (4.20-5.60); RED CELL DISTRI WIDTH 13.2 % (11.5-15.5)
[2020-12-13 02:20] LABS: HEMATOCRIT 34.4 % (37.0-47.0); HEMOGLOBIN 11.2 g/dl (12.0-16.0)
[2020-12-13 02:34] LABS: ALBUMIN 3.5 g/dL (3.2-5.0); ALKALINE PHOSPHATASE 32 u/l (38-126); AMYLASE 49 u/l (30-110); BUN 23 mg/dL (7-17); BUN/CREATININE RATIO 24 (12-20 (CALC)); CARBON DIOXIDE 28 mmol/l (22-30); CHLORIDE 106 mmol/l (95-108); CREATININE 0.9 mg/dL (0.5-1.0); GFR > 60 ML/MIN (>=60 (CALC)); GFR FOR AFR.AMER. > 60 ML/MIN (>=60 (CALC)); LIPASE 38 u/l (23-300); SGOT/AST 40 u/l (14-36); SODIUM 140 mmol/l (137-146); TOTAL PROTEIN 6.1 g/dL (6.3-8.2)
[2020-12-13 02:38] LABS: ANION GAP 8 (6-22 (CALC)); BILIRUBIN, TOTAL 0.2 mg/dL (0.0-1.4); POTASSIUM 2.3 mmol/l (3.5-5.1)
[2020-12-13 02:45] LABS: MYOGLOBIN 65 ng/mL (0 - 62)
[2020-12-13 04:13] LABS: URINE BILIRUBIN - DIPSTICK NEGATIVE (NEGATIVE); URINE BLOOD DIPSTICK NEGATIVE (NEGATIVE); URINE COLOR YELLOW; URINE GLUCOSE - DIPSTICK NEGATIVE (NEGATIVE); URINE KETONE NEGATIVE (NEGATIVE); URINE LEUK ESTERASE NEGATIVE (NEGATIVE); URINE PROTEIN - DIPSTICK NEGATIVE (NEG-TRACE); URINE SPECIFIC GRAVITY 1.025; URINE UROBILINOGEN - DIPSTICK 0.2 E.U./dL (0.2)
[2020-12-13 04:16] LABS: URINE NITRITE - DIPSTICK POSITIVE (Negative)
[2020-12-13 04:24] LABS: URINE BACTERIA MANY hpf; URINE RBC 0-2 RBC/hpf (0-5); URINE SQUAMOUS EPITHELIAL CELL FEW EPI/hpf (0-FEW)
[2020-12-13 07:35] VITALS: BP 105/77
[2020-12-13 13:12] LABS: ANION GAP 8 (6-22 (CALC)); BUN 16 mg/dL (7-17); BUN/CREATININE RATIO 22 (12-20 (CALC)); CARBON DIOXIDE 26 mmol/l (22-30); CHLORIDE 112 mmol/l (95-108); CREATININE 0.8 mg/dL (0.5-1.0); GFR > 60 ML/MIN (>=60 (CALC)); GFR FOR AFR.AMER. > 60 ML/MIN (>=60 (CALC)); SODIUM 142 mmol/l (137-146)
[2020-12-13 13:14] LABS: POTASSIUM 4.2 mmol/l (3.5-5.1)
[2020-12-13] MEDS ORDERED: KEFLEX500 MG PO (13:56)
== END 2020-12-13 15:05 | disposition home or self-care (01) ==
LOC: ED 01:45 → ED-I 04:30 → ED 04:43 → MS2 04:44
PROVIDERS: Emergency Medicine; Nurse Practitioner; ADMIT Hospitalist; ATTEND Hospitalist
DX: G93.41 Metabolic encephalopathy (principal); E87.6 Hypokalemia; N30.90 Cystitis, unspecified without hematuria; F15.10 Other stimulant abuse, uncomplicated; F12.10 Cannabis abuse, uncomplicated; I10 Essential (primary) hypertension; J44.9 Chronic obstructive pulmonary disease, unspecified; I25.10 Atherosclerotic heart disease of native coronary artery without angina pectoris; B19.20 Unspecified viral hepatitis C without hepatic coma; E03.9 Hypothyroidism, unspecified; F41.0 Panic disorder [episodic paroxysmal anxiety]; K21.9 Gastro-esophageal reflux disease without esophagitis; F17.200 Nicotine dependence, unspecified, uncomplicated; I25.2 Old myocardial infarction; B96.1 Klebsiella pneumoniae [K. pneumoniae] as the cause of diseases classified elsewhere; Z86.73 Personal history of transient ischemic attack (TIA), and cerebral infarction without residual deficits; Z85.05 Personal history of malignant neoplasm of liver; Z20.822 Contact with and (suspected) exposure to COVID-19
CPT/HCPCS: G0378

== ENCOUNTER 2021-01-29 09:31 | Emergency (ER) | payer OTHER ==
[~2021-01-29] VITALS: Ht 160 cm; Wt 59.1 kg
[2021-01-29 10:52] LABS: URINE BILIRUBIN - DIPSTICK NEGATIVE (NEGATIVE); URINE BLOOD DIPSTICK NEGATIVE (NEGATIVE); URINE COLOR YELLOW; URINE GLUCOSE - DIPSTICK NEGATIVE (NEGATIVE); URINE KETONE TRACE mg/dL (NEGATIVE); URINE PROTEIN - DIPSTICK TRACE mg/dL (NEG-TRACE); URINE SPECIFIC GRAVITY >=1.030; URINE UROBILINOGEN - DIPSTICK 0.2 E.U./dL (0.2)
[2021-01-29 10:54] LABS: IMMATURE GRANULOCYTES 0.2 % (0.0-5.0); MEAN CELL VOLUME 95.1 fL CALC (80.0-100.0); MEAN CORPUSCULAR HGB 30.5 pG CALC (26.0-32.0); MEAN CORPUSCULAR HGB CONC 32.1 g/dL CAL (32.0-36.0); NEUT# 3.73 thou/uL (2.00-7.15); RED BLOOD COUNT 4.66 mill/uL (4.20-5.60); RED CELL DISTRI WIDTH 13.7 % (11.5-15.5)
[2021-01-29 10:58] LABS: URINE LEUK ESTERASE SMALL (NEGATIVE); URINE NITRITE - DIPSTICK POSITIVE (Negative)
[2021-01-29 11:08] LABS: URINE BACTERIA MANY hpf; URINE CALCIUM OXALATE CRYSTALS FEW lpf; URINE RBC 0-2 RBC/hpf (0-5); URINE SQUAMOUS EPITHELIAL CELL FEW EPI/hpf (0-FEW)
[2021-01-29 11:09] LABS: ALKALINE PHOSPHATASE 44 u/l (38-126); ANION GAP 12 (6-22 (CALC)); BUN 22 mg/dL (7-17); BUN/CREATININE RATIO 20 (12-20 (CALC)); CARBON DIOXIDE 25 mmol/l (22-30); CHLORIDE 104 mmol/l (95-108); CREATININE 1.1 mg/dL (0.5-1.0); ETHYL ALCOHOL 0 mg/dl (0-30); GFR 51 ML/MIN (>=60 (CALC)); GFR FOR AFR.AMER. > 60 ML/MIN (>=60 (CALC)); LIPASE 32 u/l (23-300); MAGNESIUM 2.1 mg/dL (1.6-2.3); POTASSIUM 3.5 mmol/l (3.5-5.1); SGOT/AST 56 u/l (14-36); SODIUM 137 mmol/l (137-146)
[2021-01-29 11:11] LABS: ALBUMIN 4.6 g/dL (3.2-5.0); BILIRUBIN, TOTAL 0.6 mg/dL (0.0-1.4); HEMATOCRIT 44.3 % (37.0-47.0); HEMOGLOBIN 14.2 g/dl (12.0-16.0)
[2021-01-29] MEDS ORDERED: OMNI-PAC300 MG PO (12:45)
[2021-01-29 12:52] VITALS: BP 138/92
== END 2021-01-29 12:55 | disposition left against medical advice (07) ==
LOC: ED 09:31
PROVIDERS: Family Medicine
DX: R07.9 Chest pain, unspecified (principal); N39.0 Urinary tract infection, site not specified; F15.10 Other stimulant abuse, uncomplicated; F12.10 Cannabis abuse, uncomplicated; F11.99 Opioid use, unspecified with unspecified opioid-induced disorder; J44.9 Chronic obstructive pulmonary disease, unspecified; B19.20 Unspecified viral hepatitis C without hepatic coma; E03.9 Hypothyroidism, unspecified; F41.0 Panic disorder [episodic paroxysmal anxiety]; K21.9 Gastro-esophageal reflux disease without esophagitis; F17.210 Nicotine dependence, cigarettes, uncomplicated; F17.290 Nicotine dependence, other tobacco product, uncomplicated; I25.2 Old myocardial infarction; B96.20 Unspecified Escherichia coli [E. coli] as the cause of diseases classified elsewhere; Z86.73 Personal history of transient ischemic attack (TIA), and cerebral infarction without residual deficits; Z91.19 Patient's noncompliance with other medical treatment and regimen; Z20.822 Contact with and (suspected) exposure to COVID-19
CPT/HCPCS: Q9967

== ENCOUNTER 2021-05-27 13:14 | Emergency (ER) | payer OTHER ==
[~2021-05-27] VITALS: Ht 160 cm; Wt 50.9 kg
[~2021-05-27 13:14] MED LIST changes: +OMNI-PAC300 MG PO
[2021-05-27] MEDS ORDERED: CEPHALEXIN500 M1 PO (14:05)
[2021-05-27] MEDS ORDERED: BACTRIM DS1 TAB PO (14:05)
[2021-05-27 14:11] VITALS: BP 146/99
== END 2021-05-27 14:21 | disposition home or self-care (01) ==
LOC: ED 13:14
DX: L02.212 Cutaneous abscess of back [any part, except buttock and flank] (principal); J44.9 Chronic obstructive pulmonary disease, unspecified; E03.9 Hypothyroidism, unspecified; K21.9 Gastro-esophageal reflux disease without esophagitis; B19.20 Unspecified viral hepatitis C without hepatic coma; F17.210 Nicotine dependence, cigarettes, uncomplicated; I25.2 Old myocardial infarction; Z87.440 Personal history of urinary (tract) infections; Z85.89 Personal history of malignant neoplasm of other organs and systems; Z86.73 Personal history of transient ischemic attack (TIA), and cerebral infarction without residual deficits; Z85.05 Personal history of malignant neoplasm of liver

== ENCOUNTER 2023-02-17 05:17 | Emergency (ER) | payer OTHER ==
[~2023-02-17] VITALS: Ht 160 cm; Wt 52.0 kg
[2023-02-17] VITALS (7 sets, daily range): BP systolic 138–177; BP diastolic 67–106
[~2023-02-17 05:17] MED LIST changes: +CEPHALEXIN500 M1 PO
[2023-02-17] MEDS ORDERED: OXYCODONE5 M1 PO (08:06)
== END 2023-02-17 08:44 | disposition home or self-care (01) ==
LOC: ED 05:17
DX: M25.562 Pain in left knee (principal); M25.552 Pain in left hip; J44.9 Chronic obstructive pulmonary disease, unspecified; B19.20 Unspecified viral hepatitis C without hepatic coma; I25.2 Old myocardial infarction; F17.200 Nicotine dependence, unspecified, uncomplicated; Z86.73 Personal history of transient ischemic attack (TIA), and cerebral infarction without residual deficits

== ENCOUNTER 2023-05-18 15:59 | Emergency (ER) | payer OTHER ==
[2023-05-18] VITALS (12 sets, daily range): BP systolic 139–181; BP diastolic 83–110
[~2023-05-18] VITALS: Ht 160 cm; Wt 52.0 kg
== END 2023-05-18 18:45 | disposition home or self-care (01) ==
LOC: ED 15:59
DX: S00.03XA Contusion of scalp, initial encounter (principal); M25.552 Pain in left hip; M25.572 Pain in left ankle and joints of left foot; M79.672 Pain in left foot; I25.2 Old myocardial infarction; E03.9 Hypothyroidism, unspecified; B19.20 Unspecified viral hepatitis C without hepatic coma; J44.9 Chronic obstructive pulmonary disease, unspecified; F17.200 Nicotine dependence, unspecified, uncomplicated; W18.39XA Other fall on same level, initial encounter; Y92.009 Unspecified place in unspecified non-institutional (private) residence as the place of occurrence of the external cause

== ENCOUNTER 2024-01-15 13:13 | Emergency (ER) | payer OTHER ==
[2024-01-15] VITALS (11 sets, daily range): BP systolic 137–173; BP diastolic 93–122
[~2024-01-15] VITALS: Ht 160 cm; Wt 50.8 kg
[2024-01-15 15:02] LABS: BASO% 0.4 % (0-3); EOS% 2.4 % (0-8); HEMATOCRIT 38.2 % (37.0-47.0); HEMOGLOBIN 12.6 g/dl (12.0-16.0); IMMATURE GRANULOCYTES 0.3 % (0.0-5.0); LYMPH% 31.3 % (15-41); MEAN CELL VOLUME 88.4 fL CALC (80.0-100.0); MEAN CORPUSCULAR HGB 29.2 pG CALC (26.0-32.0); NEUT# 4.24 thou/uL (2.00-7.15); NEUT% 60.6 % (42-76); RED BLOOD COUNT 4.32 mill/uL (4.20-5.60); RED CELL DISTRI WIDTH 14.5 % (11.5-15.5)
[2024-01-15 15:20] LABS: ALBUMIN 4.1 g/dL (3.2-5.0); CREATININE 0.7 mg/dL (0.5-1.0); POTASSIUM 3.6 mmol/l (3.5-5.1); TOTAL PROTEIN 7.4 g/dL (6.3-8.2)
[2024-01-15 15:26] LABS: BILIRUBIN, TOTAL 0.5 mg/dL (0.02-1.3)
[2024-01-15] MEDS ORDERED: HYDROcodone 5 MG/Acetaminophen 325 MG/COMBO PO ONE (15:50)
[2024-01-15] MEDS ORDERED: predniSONE 20 MG/TAB PO ONE (15:50)
[2024-01-15] MEDS ORDERED: METHOCARBAMOL500 MG PO (16:07)
[2024-01-15] MEDS ORDERED: PREDNISONE20 MG PO (16:07)
== END 2024-01-15 17:00 | disposition home or self-care (01) ==
LOC: ED 13:13
PROVIDERS: Nurse Practitioner
DX: S70.01XA Contusion of right hip, initial encounter (principal); M16.11 Unilateral primary osteoarthritis, right hip; J44.9 Chronic obstructive pulmonary disease, unspecified; E03.9 Hypothyroidism, unspecified; B19.20 Unspecified viral hepatitis C without hepatic coma; I25.2 Old myocardial infarction; F17.200 Nicotine dependence, unspecified, uncomplicated; W01.0XXA Fall on same level from slipping, tripping and stumbling without subsequent striking against object, initial encounter; Y92.009 Unspecified place in unspecified non-institutional (private) residence as the place of occurrence of the external cause; Z86.73 Personal history of transient ischemic attack (TIA), and cerebral infarction without residual deficits; Z85.89 Personal history of malignant neoplasm of other organs and systems; Z85.05 Personal history of malignant neoplasm of liver; Z96.642 Presence of left artificial hip joint; Z20.822 Contact with and (suspected) exposure to COVID-19